=== PATIENT | male | born 1985 | race Two or more races ===

== ENCOUNTER 2017-12-19 15:12 | Emergency (ER) | payer OTHER ==
[~2017-12-19] VITALS: Ht 180.3 cm; Wt 59.0 kg
== END 2017-12-19 18:29 | disposition home or self-care (01) ==
LOC: ED 15:12
PROC: 0DJD8ZZ Inspection of Lower Intestinal Tract, Via Natural or Artificial Opening Endoscopic (ICD-10-PCS; principal; 2017-12-19)
DX: T74.21XA Adult sexual abuse, confirmed, initial encounter (principal)
CPT/HCPCS: 46600; 99282

== ENCOUNTER 2019-05-21 08:53 | Emergency (ER) | payer OTHER ==
[~2019-05-21] VITALS: Ht 180.3 cm; Wt 59.0 kg
== END 2019-05-21 10:38 | disposition home or self-care (01) ==
LOC: ED 08:53
PROC: 0RSJXZZ Reposition Right Shoulder Joint, External Approach (ICD-10-PCS; principal; 2019-05-21)
DX: S43.014A Anterior dislocation of right humerus, initial encounter (principal); Y04.0XXA Assault by unarmed brawl or fight, initial encounter
CPT/HCPCS: 23650; 73030; 99283-25